=== PATIENT | male | born 1980 | race Caucasian/White ===

== ENCOUNTER 2024-05-18 17:58 | Emergency (ER) | payer MEDICAID ==
[~2024-05-18] VITALS: Ht 167.6 cm; Wt 64.0 kg
[2024-05-18 18:01] VITALS: O2SAT 99
[2024-05-18] MEDS ORDERED: TOPUD PO (19:41)
[2024-05-18] MEDS: LIDOCAINE HCL/PF 1% 10 MG/ML 5ML VIAL INFIL ONE (20:36)
[2024-05-18 20:42] VITALS: BP 128/79; PULSE 88; RESP 18; TEMP 36.7; O2SAT 99
== END 2024-05-18 20:44 | disposition home or self-care (01) ==
LOC: ER 17:58
DX: S01.01XA Laceration without foreign body of scalp, initial encounter (principal); X58.XXXA Exposure to other specified factors, initial encounter; Y93.89 Activity, other specified; Y92.89 Other specified places as the place of occurrence of the external cause; Y99.8 Other external cause status
CPT/HCPCS: 99284; 70450; 70486; 12001; J2003